=== PATIENT | male | born 1950 | race Caucasian/White ===

== ENCOUNTER 2018-03-11 17:31 | Emergency (ER) | payer MEDICARE ==
[~2018-03-11] VITALS: Ht 182.9 cm; Wt 87.5 kg
[2018-03-11] MEDS ORDERED: ALLO100T PO (17:39)
[2018-03-11] MEDS ORDERED: ESCI5TAB PO (17:39)
[2018-03-11] MEDS ORDERED: GABA-532 PO (17:39)
[2018-03-11] MEDS ORDERED: HYDROCHLOROQUINE (17:39)
--- NOTE | 2018-03-11 17:45 | NUR ---
BIB [facility] FROM HOME,SYNCOPAL EPISODE,(+) ORTHO'S,COFFEE GROUND EMESIS X . PT AAOX3. FAMILY MEMBERS AT BS. REPORTS KIDNEY TRANSPLANT. 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 DENIES NAUSEA/ ANY PAIN AT THIS TIME. SAFETY AND COMFORT MEASURES PROVIDED. WILL MONITOR.
[2018-03-11] MEDS ORDERED: ONDANSETRON HCL/PF 4 MG/2 ML VIAL ONE (17:54)
[2018-03-11] MEDS ORDERED: PANTOPRAZOLE 80 MG in IV NS 0.9% 500 ML IV ONE (18:00)
[2018-03-11] MEDS ORDERED: ONDANSETRON HCL/PF - ER 4 MG/2 ML VIAL IV ONE (18:00)
[2018-03-11] MEDS ORDERED: HYDR200T4 PO (18:01)
[2018-03-11 18:07] LABS: LYMPHOCYTES # (AUTO) 1.1 /CMM (0.8-4.8); MEAN CORPUSCULAR HGB CONC 33 g/dl (31.0-36.0); RED BLOOD CELL COUNT(AUTO) 5.22 MIL/uL (4.5-6.0)
[2018-03-11 18:16] LABS: BASOPHILS # (AUTO) 0.1 /CMM (0.0-0.2); BASOPHILS % (AUTO) 1.3 % (0.0-2.0); EOSINOPHILS % (AUTO) 1.2 % (0.0-6.0); HEMATOCRIT 47 % (39-51); HEMOGLOBIN 15.5 g/dL (13.5-17.5); LYMPHOCYTES % (AUTO) 22.2 % (20.0-44.0); MEAN CORPUSCULAR HEMOGLOBIN 30 PG (26.0-33.0); MEAN CORPUSCULAR VOLUME 90 fL (80-96); MONOCYTES # (AUTO) 0.9 /CMM (0.1-1.30); MONOCYTES % (AUTO) 18.5 % (2.0-12.0); NEUTROPHILS # (AUTO) 2.8 /CMM (1.8-8.9); NEUTROPHILS % (AUTO) 56.8 % (43.0-81.0); PLATELET COUNT (AUTO) 242 /CMM (150-450); RDW COEFFICIENT OF VARIATION 12.7 (11.5-15.0)
[2018-03-11] MEDS ORDERED: GABA-534 PO ×2 (18:19)
[2018-03-11] MEDS ORDERED: MYCO500T PO (18:19)
[2018-03-11] MEDS ORDERED: DEXL60CA3 PO (18:19)
[2018-03-11] MEDS ORDERED: TACR1CAP PO (18:19)
[2018-03-11] MEDS ORDERED: ASPI-1152 PO (18:19)
[2018-03-11] MEDS ORDERED: TACR0.5C4 PO (18:19)
[2018-03-11] MEDS ORDERED: [UNRECOGNIZED DRUG - OTHER] PO (18:19)
[2018-03-11 18:21] LABS: INR 0.98 (0.85-1.15)
[2018-03-11 18:24] LABS: ALANINE AMINOTRANSFERASE 27 U/L (12-78); ALBUMIN 3.8 g/dL (3.4-5.0); ALKALINE PHOSPHATASE 72 U/L (46-116); ASPARTATE AMINOTRANSFERASE 15 U/L (15-37); BILIRUBIN,DIRECT 0.3 mg/dL (0.0-0.2); BILIRUBIN,TOTAL 1.3 mg/dL (0.2-1.0); CARBON DIOXIDE 24 mmol/L (21-32); CHLORIDE 100 mmol/L (98-107); CREATININE 1.2 mg/dL (0.6-1.3); GLUCOSE 199 mg/dL (74-106); LIPASE 85 U/L (73-393); POTASSIUM 3.4 mmol/L (3.5-5.1); SODIUM SERUM 134 mmol/L (136-145); TOTAL PROTEIN, SERUM 7.7 g/dL (6.4-8.2); UREA NITROGEN, BLOOD 25 mg/dL (7-18)
[2018-03-11 18:26] LABS: TROPONIN I < 0.017 ng/mL (0.00-0.056)
[2018-03-11] MEDS ORDERED: GABAPENTIN 300 MG CAPSULE ONE (18:46)
--- NOTE | 2018-03-11 18:48 | NUR ---
CALLED [facility] SPOKE WITH [facility] NURSING EDITOR AT [place], I FAXED HER FACESHEET AND CLINICALS.
--- NOTE | 2018-03-11 18:50 | NUR ---
DR PAULINO ON THE PHONE WITH DR WARD (HORSE RACE TIMER FOR DR AL DENG)
--- NOTE | 2018-03-11 18:59 | NUR ---
CLARIFIED WITH DR. LIM THAT PO MEDS GABAPENTIN AND PROGRAF WILL BE PUT ON HOLD/ ANY PO UNTIL CLEARED BY GI. PT AND FAMILY MEMBERS MADE AWARE.
[2018-03-11] MEDS ORDERED: IV NS 0.9% 1,000 ML BAG IV ONE ×2 (19:00→21:00)
[2018-03-11] MEDS: TACROLIMUS ANHYDROUS 1 MG CAPSULE PO STA ×2 (19:01→19:21)
[2018-03-11] MEDS: GABAPENTIN 100 MG CAPSULE PO STA ×2 (19:01→19:21)
--- NOTE | 2018-03-11 19:05 | NUR ---
PER DAUGHTER SHE CALLED PT'S GI DOCTOR AND CLEARED HIM TO TAKE HIS PO MEDS. DR. LIM AWARE. LEFT PO MEDS- GABAPENTIN AND PROGRAF WITH DAUGHTER SHE SAID SHE WILL GIVE IT AT 1930 SCHEDULED.
[2018-03-11 19:08] LABS: MAGNESIUM 1.5 mg/dL (1.8-2.4); PHOSPHORUS 2.2 mg/dL (2.5-4.9)
--- NOTE | 2018-03-11 19:08 | NUR ---
RECEIVED A CALL FROM [employer] AT [facility], SHE NOTIFIED ME SHE IS WORKING ON GETTING A BED ASSIGNMENT FOR THE PATIENT+
--- NOTE | 2018-03-11 19:22 | NUR ---
REPORT GIVEN TO BETTIE ANDREW FOR GLENDA.
[2018-03-11] MEDS ORDERED: MYCOPHENOLATE MOFETIL 250 MG CAPSULE PO STA (19:50)
[2018-03-11 19:53] LABS: BAND % (MANUAL) 10 % (0.0-5.0); LYMPHOCYTES % (MANUAL) 21 % (16-48); MONOCYTES % (MANUAL) 17 % (0-11.0); NEUTROPHILS % (MANUAL) 51 (42-76); REACTIVE LYMPHOCYTES 1 % (0-0)
--- NOTE | 2018-03-11 20:08 | NUR ---
ALL HOME MEDICATIONS GIVEN BY FAMILY. ER MD MADE AWARE AND ACCEPTED. WILL CONTINUE TO MONITOR FOR ANY OTHER NEEDS
[2018-03-11] MEDS ORDERED: MAG HYDROX/AL HYDROX/SIMETH 30 ML UDC ONE (20:47)
--- NOTE | 2018-03-11 20:51 | NUR ---
PATIENT ACCEPTED AT [facility]. ALS TRANSPORTATION ETA 90 MIN RN TO RN REPORT RN GLENDA VALDOVINOS ACCEPTING DR OLIVAS
[2018-03-11] MEDS ORDERED: MAG HYDROX/AL HYDROX/SIMETH 30 ML UDC PO ONE (21:00)
--- NOTE | 2018-03-11 21:05 | NUR ---
CORRECT NUMBER IS [phone]
--- NOTE | 2018-03-11 21:28 | NUR ---
REPORT GIVEN TO JACLYN PEREZ [facility]
[2018-03-11 23:00] VITALS: BP 124/81
== END 2018-03-11 23:15 | disposition short-term general hospital (02) ==
LOC: ER 17:32
DX: K92.0 Hematemesis (principal); I10 Essential (primary) hypertension; E11.9 Type 2 diabetes mellitus without complications; Z94.0 Kidney transplant status; Z88.8 Allergy status to other drugs, medicaments and biological substances; Z79.82 Long term (current) use of aspirin
CPT/HCPCS: 36415; 71045; 80048; 80076; 83690; 83735; 84100; 84484; 85025; 85730; 86850; 93005; 96361; 96365; 96366; 96375; 99285; A4606; C9113; J2405; J7030; J7040; J7507; J7517; Z7610